=== PATIENT | female | born 2000 | race Two or more races ===

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

== ENCOUNTER 2020-01-07 00:18 | Observation (INO) | payer MEDICAID ==
[~2020-01-07] VITALS: Ht 149.9 cm; Wt 62.6 kg
[2020-01-07] MEDS ORDERED: PREN-96 PO (01:35)
[2020-01-07] MEDS ORDERED: TERBUTALINE SULFATE 1 MG/ML 1ML VIAL SC ONE (02:08)
[2020-01-07] MEDS ORDERED: TERBUTALINE SULFATE 1 MG/ML 1ML VIAL SC SCH (02:15)
== END 2020-01-07 03:05 | disposition home or self-care (01) | DRG 566 ==
LOC: LDRP 00:18
PROVIDERS: ADMIT Obstetrics & Gynecology; ATTEND Obstetrics & Gynecology
DX: O62.9 Abnormality of forces of labor, unspecified (principal); Z3A.29 29 weeks gestation of pregnancy
CPT/HCPCS: 59025; 76815; 81002; G0378; J3105; 96372